=== PATIENT | female | born 1995 | race African-American/Black ===

== ENCOUNTER 2020-11-21 19:15 | Emergency (ER) | payer BC ==
[2020-11-21 19:31] VITALS: BP 126/82; PULSE 68; TEMP 98.6; BMI 32.5
[2020-11-21 21:36] LABS: EPI CELLS >36 /uL (0-25.1); HYALINE CASTS 10 /uL (0-3.1); PH,URINE 5.5 (5.0-8.0); URINE APPEARANCE TURBID; URINE BACTERIA 3531 /uL (0-1359); URINE BILIRUBIN NEGATIVE (NEGATIVE); URINE COLOR RED; URINE GLUCOSE (UA) NEGATIVE (NEGATIVE); URINE KETONE NEGATIVE (NEGATIVE); URINE LEUK ESTERASE 2+ (NEGATIVE); URINE NITRITE NEGATIVE (NEGATIVE); URINE PROTEIN 2+ (NEGATIVE); URINE RBC 14811 /uL (0-23.9); URINE WBC 424 /uL (0-25.8)
== END 2020-11-21 23:01 | disposition home or self-care (01) ==
LOC: JERFT 19:15
DX: N93.9 Abnormal uterine and vaginal bleeding, unspecified (principal); N30.01 Acute cystitis with hematuria; Z32.02 Encounter for pregnancy test, result negative
CPT/HCPCS: 76830-TC; 81003; 84703; 99284-25